=== PATIENT | male | born 1970 | race American Indian/Alaskan Native ===

== ENCOUNTER → 2017-10-11 | Outpatient (CLI) | payer BC ==
[~2017-10-11] MED LIST: ATEN25 PO; CEPH500 PO; CLIN300 PO; HYDACE5 PO; RXCEPH500 PO
[2017-10-11 19:45] LABS: Influenza A Positive (NEGATIVE); Influenza B Negative (NEGATIVE)
== END ==
LOC: LAB 16:50
PROVIDERS: Family Medicine
DX: R50.9 Fever, unspecified (principal)
CPT/HCPCS: 87804

== ENCOUNTER 2018-12-18 10:00 | Day surgery (SDC) | payer BC ==
[~2018-12-18] VITALS: Ht 180.3 cm; Wt 94.3 kg
[~2018-12-18 10:00] MED LIST changes: +ALLO300 PO; +EPIPEN 2-P0.3 MG/0.3 IM; +LOSARTAN POTAS100 MG PO; +METO25 PO; +Omeprazole20 M1 PO
== END 2018-12-18 11:47 | disposition home or self-care (01) ==
LOC: ORSCSDS 10:00
PROVIDERS: Internal Medicine Gastroenterology
PROC: 0DBM8ZX Excision of Descending Colon, Via Natural or Artificial Opening Endoscopic, Diagnostic (ICD-10-PCS; principal; 2018-12-18 11:15)
DX: Z12.11 Encounter for screening for malignant neoplasm of colon (principal); D12.4 Benign neoplasm of descending colon; K64.8 Other hemorrhoids; I10 Essential (primary) hypertension; E78.5 Hyperlipidemia, unspecified; G47.33 Obstructive sleep apnea (adult) (pediatric); Z79.899 Other long term (current) drug therapy; Z87.891 Personal history of nicotine dependence
CPT/HCPCS: 88305; J2704; J7120

== ENCOUNTER 2023-03-23 10:35 | Emergency (ER) | payer OTHER ==
[~2023-03-23] VITALS: Ht 177.8 cm; Wt 99.8 kg
[2023-03-23 10:44] VITALS: BP 140/95
[2023-03-23] MEDS ORDERED: LOSARTAN-HCTZ1 EAC6 PO (10:48)
[2023-03-23] MEDS ORDERED: TADA10TA PO (10:49)
== END 2023-03-23 11:08 | disposition home or self-care (01) ==
LOC: ER 10:35
DX: S92.531A Displaced fracture of distal phalanx of right lesser toe(s), initial encounter for closed fracture (principal); S90.121A Contusion of right lesser toe(s) without damage to nail, initial encounter; I10 Essential (primary) hypertension; Z88.8 Allergy status to other drugs, medicaments and biological substances; Z91.038 Other insect allergy status; Z79.899 Other long term (current) drug therapy; Z87.891 Personal history of nicotine dependence; W20.8XXA Other cause of strike by thrown, projected or falling object, initial encounter
CPT/HCPCS: 99282

== ENCOUNTER 2023-04-24 11:47 | Day surgery (SDC) | payer OTHER ==
[~2023-04-24] VITALS: Ht 177.8 cm; Wt 101.8 kg
[~2023-04-24 11:47] MED LIST changes: +LOSARTAN-HCTZ1 EAC6 PO; +TADA10TA PO
[2023-04-24] MEDS ORDERED: CETI5 (12:18)
[2023-04-24 13:51] VITALS: BP 124/73
== END 2023-04-24 13:40 | disposition home or self-care (01) ==
LOC: ORSCSDS 11:47
PROVIDERS: Internal Medicine Gastroenterology
PROC: 0DB58ZX Excision of Esophagus, Via Natural or Artificial Opening Endoscopic, Diagnostic (ICD-10-PCS; principal; 2023-04-24 13:00)
DX: K21.00 Gastro-esophageal reflux disease with esophagitis, without bleeding (principal); I10 Essential (primary) hypertension; E78.5 Hyperlipidemia, unspecified; G47.33 Obstructive sleep apnea (adult) (pediatric); Z87.891 Personal history of nicotine dependence; Z79.899 Other long term (current) drug therapy
CPT/HCPCS: 88305; 88312; J2001; J2704; J7120

== ENCOUNTER 2023-06-08 06:37 | Day surgery (SDC) | payer OTHER ==
[~2023-06-08] VITALS: Ht 180.3 cm; Wt 102.2 kg
[2023-06-08] VITALS (8 sets, daily range): BP systolic 131–158; BP diastolic 83–93
[~2023-06-08 06:37] MED LIST changes: +CETI5 PO; +DIM PO; +SILD50TA PO; +VITAMIN D310 MC4 PO
--- NOTE | 2023-06-08 08:19 | NUR ---
Ambulatory in Day Surgery. History, Chart, Medications and Allergies reviewed before start of procedure. Patient confirms NPO status and agrees with scheduled surgery. Patient reports completing Chlorhexadine shower X2 prior to admission to hospital. Patient States Post-Procedure ride home has been arranged. Patient States Post-Procedure ride home has been arranged.
--- NOTE | 2023-06-08 10:30 | NUR ---
pt amb to bathroom and back, steady gait.
--- NOTE | 2023-06-08 14:02 | NUR ---
Discharge instructions reviewed with patient. Patient verbalizes understanding. Copy given to patient to take home. Patient States Post-Procedure ride home has been arranged. Declined WC to discharge. 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
== END 2023-06-08 13:55 | disposition home or self-care (01) ==
LOC: ORSCMMR 06:37 → ORD 08:00 → ORSCMMR 08:00
PROVIDERS: Surgery
PROC: 0JB00ZX Excision of Scalp Subcutaneous Tissue and Fascia, Open Approach, Diagnostic (ICD-10-PCS; principal; 2023-06-08 11:15)
DX: D17.0 Benign lipomatous neoplasm of skin and subcutaneous tissue of head, face and neck (principal); I10 Essential (primary) hypertension; G47.33 Obstructive sleep apnea (adult) (pediatric); Z79.899 Other long term (current) drug therapy
CPT/HCPCS: 88304; J0690; J1100; J2250; J2405; J2704; J3010; J7120